=== PATIENT | male | born 1980 | race American Indian/Alaskan Native ===

== ENCOUNTER 2019-06-23 09:44 | Emergency (ER) | payer MEDICAID, OTHER ==
--- NOTE | 2019-06-23 10:49 | EDM.PDOC ---
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 Hospitalized x 2 weeks, chest tubes bilateral. Now on IV vancomycin twice daily. No nausea or vomiting. No fever. No difficulty with urination. Right Flank Pain Score (Numeric/FACES): 10 - Related Data Allergies Allergy/AdvReac Type Severity Reaction Status Date / Time No Known Allergies Allergy Verified 06/23/19 09:58 Home Meds: Home Meds Vancomycin HCl in Dextrose 5 % [Vancomycin 1.25 Gram/250Ml-D5w] 1.25 gm IV BID 06/23/19 [History] Past Medical History Cardiovascular History: Reports: Bacterial Endocarditis, Blood Clots/VTE/DVT Gastrointestinal History: Reports: Chronic Constipation Other Gastrointestinal History: takes a stool softner, does not know what it is Genitourinary History: Reports: None - Past Surgical History Respiratory Surgical History: Reports: Other (See Below) Other Respiratory Surgeries/Procedures: Bilat. chest tubes due to PE Social & Family History - Tobacco Use Smoking Status *Q: Former Smoker Used Tobacco, but Quit: Yes Month/Year Tobacco Last Used: 1 Tobacco Use Comment: States he stopped smoking 3 weeks ago - Caffeine Use Caffeine Use: Reports: Soda - Recreational Drug Use Recreational Drug Use: No ED ROS GENERAL - Review of Systems Review Of Systems: Comprehensive ROS is negative, except as noted in HPI. ED EXAM,LOWER BACK PAIN/INJURY - Physical Exam Exam: See Below Exam Limited By: No Limitations General Appearance: Alert, Mild Distress, Thin Eye Exam: Bilateral Eye: EOMI Ears: Normal External Exam, Normal Canal, Hearing Grossly Normal, Normal TMs Nose: Normal Inspection Throat/Mouth: Normal Inspection Head: Atraumatic, Normocephalic Neck: Normal Inspection Respiratory/Chest: No Respiratory Distress, Lungs Clear, Normal Breath Sounds Cardiovascular: Normal Peripheral Pulses, Regular Rate, Rhythm GI/Abdominal: Abnormal Bowel Sounds (hyperactie) Back Exam: Normal Inspection, Full Range of Motion Extremities: Normal Inspection Neurological: Alert, Normal Mood/Affect Psychiatric: Normal Affect Skin Exam: Warm, Dry, Intact, Normal Color Course - Vital Signs Last Recorded V/S: Last Vital Signs Temp 98.6 F 06/23/19 09:55 Pulse 93 06/23/19 09:55 Resp 20 06/23/19 09:55 BP 138/97 H 06/23/19 09:55 Pulse Ox 100 06/23/19 09:55 - Orders/Labs/Meds Labs: Laboratory Tests 06/23/19 06/23/19 06/23/19 Range/Units 10:16 10:47 10:47 WBC 9.8 (5.0-10.0) 10^3/uL RBC 4.37 L (4.6-6.2) 10^6/uL Hgb 13.2 L (14.0-18.0) g/dL Hct 39.2 L (40.0-54.0) % MCV 89.7 (80-100) fL MCH 30.2 (27.0-34.0) pg MCHC 33.7 (33.0-35.0) g/dL Plt Count 449 (150-450) 10^3/uL Neut % (Auto) 64.9 (42.2-75.2) % Lymph % (Auto) 13.7 L (20.5-50.1) % [place] % (Auto) 6.9 (2-8) % Eos % (Auto) 13.4 H (1.0-3.0) % Baso % (Auto) 1.1 H (0.0-1.0) % D-Dimer, Quantitative (0-400) ng/mL Sodium 137 (135-145) mmol/L Potassium 4.3 (3.6-5.0) mmol/L Chloride 103 (101-111) mmol/L Carbon Dioxide 26.0 (21.0-31.0) mmol/L Anion Gap 12.3 BUN 12 (7-18) mg/dL Creatinine 1.0 (0.6-1.3) mg/dL Est Cr Clr Drug Dosing 90.38 mL/min Estimated GFR (MDRD) > 60 BUN/Creatinine Ratio 12.00 Glucose 89 (74-105) mg/dL Lactic Acid (0.5-2.0) mmol/L Calcium 8.8 (8.4-10.2) mg/dl Total Bilirubin 0.7 (0.2-1.0) mg/dL AST 13 (10-42) IU/L ALT 10 (10-60) IU/L Alkaline Phosphatase 61 (42-121) IU/L Total Protein 7.6 (6.7-8.2) g/dl Albumin 3.3 (3.2-5.5) g/dl Globulin 4.3 Albumin/Globulin Ratio 0.77 Amylase 47 (28-100) U/L Lipase 23 (22-51) U/L Urine Color Yellow (YELLOW) Urine Appearance Clear (CLEAR) Urine pH 7.0 (5.0-9.0) Ur Specific [place] 1.025 (1.005-1.030) Urine Protein Negative (NEGATIVE) Urine Glucose (UA) Negative (NEGATIVE) Urine Ketones Negative (NEGATIVE) Urine Occult Blood Negative (NEGATIVE) Urine Nitrite Negative (NEGATIVE) Urine Bilirubin Negative (NEGATIVE) Urine Urobilinogen 0.2 (0.2-1.0) mg/dL Ur Leukocyte Esterase Negative (NEGATIVE) Urine Opiates Screen (NEGATIVE) Ur Oxycodone Screen (NEGATIVE) Urine Methadone Screen (NEGATIVE) Ur Barbiturates Screen (NEGATIVE) U Tricyclic Antidepress (NEGATIVE) Ur Phencyclidine Scrn (NEGATIVE) Ur Amphetamine Screen (NEGATIVE) U Methamphetamines Scrn (NEGATIVE) Urine MDMA Screen (NEGATIVE) U Benzodiazepines Scrn (NEGATIVE) Urine Cocaine Screen (NEGATIVE) U Marijuana (THC) Screen (NEGATIVE) 06/23/19 06/23/19 06/23/19 Range/Units 10:47 10:47 11:25 WBC (5.0-10.0) 10^3/uL RBC (4.6-6.2) 10^6/uL Hgb (14.0-18.0) g/dL Hct (40.0-54.0) % MCV (80-100) fL MCH (27.0-34.0) pg MCHC (33.0-35.0) g/dL Plt Count (150-450) 10^3/uL Neut % (Auto) (42.2-75.2) % Lymph % (Auto) (20.5-50.1) % [place] % (Auto) (2-8) % Eos % (Auto) (1.0-3.0) % Baso % (Auto) (0.0-1.0) % D-Dimer, Quantitative 482 H (0-400) ng/mL Sodium (135-145) mmol/L Potassium (3.6-5.0) mmol/L Chloride (101-111) mmol/L Carbon Dioxide (21.0-31.0) mmol/L Anion Gap BUN (7-18) mg/dL Creatinine (0.6-1.3) mg/dL Est Cr Clr Drug Dosing mL/min Estimated GFR (MDRD) BUN/Creatinine Ratio Glucose (74-105) mg/dL Lactic Acid 0.9 (0.5-2.0) mmol/L Calcium (8.4-10.2) mg/dl Total Bilirubin (0.2-1.0) mg/dL AST (10-42) IU/L ALT (10-60) IU/L Alkaline Phosphatase (42-121) IU/L Total Protein (6.7-8.2) g/dl Albumin (3.2-5.5) g/dl Globulin Albumin/Globulin Ratio Amylase (28-100) U/L Lipase (22-51) U/L Urine Color (YELLOW) Urine Appearance (CLEAR) Urine pH (5.0-9.0) Ur Specific [place] (1.005-1.030) Urine Protein (NEGATIVE) Urine Glucose (UA) (NEGATIVE) Urine Ketones (NEGATIVE) Urine Occult Blood (NEGATIVE) Urine Nitrite (NEGATIVE) Urine Bilirubin (NEGATIVE) Urine Urobilinogen (0.2-1.0) mg/dL Ur Leukocyte Esterase (NEGATIVE) Urine Opiates Screen Negative (NEGATIVE) Ur Oxycodone Screen Negative (NEGATIVE) Urine Methadone Screen Negative (NEGATIVE) Ur Barbiturates Screen Negative (NEGATIVE) U Tricyclic Antidepress Negative (NEGATIVE) Ur Phencyclidine Scrn Negative (NEGATIVE) Ur Amphetamine Screen Negative (NEGATIVE) U Methamphetamines Scrn Negative (NEGATIVE) Urine MDMA Screen Negative (NEGATIVE) U Benzodiazepines Scrn Negative (NEGATIVE) Urine Cocaine Screen Negative (NEGATIVE) U Marijuana (THC) Screen Negative (NEGATIVE) Meds: Medications Discontinued Medications Generic Name Dose Route Start Last Admin Trade Name Freq PRN Reason Stop Dose Admin Iopamidol 100 ml 06/23/19 12:03 06/23/19 15:35 Isovue-300 (61%) IVPUSH 06/23/19 12:04 100 ml ONETIME ONE Administration Ketorolac Tromethamine 30 mg 06/23/19 12:33 06/23/19 12:46 Toradol IVPUSH 06/23/19 12:34 30 mg ONETIME ONE Administration - Radiology Interpretation Free Text/Narrative:: abdomen, moderate stool. See report Departure - Departure Time of Disposition: 12:45 Disposition: Home, Self-Care 01 Condition: Good Clinical Impression: Flank pain Constipation Qualifiers: Constipation type: slow transit constipation Qualified Code(s): K59.01 - Slow transit constipation - Discharge Information *PRESCRIPTION DRUG MONITORING PROGRAM REVIEWED*: No *COPY OF PRESCRIPTION DRUG MONITORING REPORT IN PATIENT ARON: No Instructions: Constipation, Adult, [id number] Referrals: PCP,Unobtain [Primary Care Provider] - Forms: ED Department Discharge Additional Instructions: magnesium citrate one bottle today take stool softeners as directed follow up with primary care regarding chest scan Sepsis Event Note - Evaluation Sepsis Screening Result: No Definite Risk - Focused Exam Date Exam was Performed: 06/25/19 Time Exam was Performed: 06:04
[2019-06-23 11:17] LABS: ANION GAP 12.3; CHLORIDE,CL 103 mmol/L (101-111); SODIUM,NA 137 mmol/L (135-145)
[2019-06-23] MEDS ORDERED: Iopamidol 612 MG/ML 100 ML Bottle IVPUSH ONE (12:03)
[2019-06-23] MEDS ORDERED: Ketorolac 30 MG/ML SDV IVPUSH ONE (12:33)
== END 2019-06-23 13:00 | disposition home or self-care (01) ==
LOC: DL.ED 09:44
DX: K59.01 Slow transit constipation (principal); Z87.891 Personal history of nicotine dependence
CPT/HCPCS: 36415; 71260; 74177; 80053; 80305; 81003; 82150; 83605; 83690; 85025; 85379; 87040; 96374; 99284; J1885; Q9967

== ENCOUNTER 2020-09-14 06:48 | Emergency (ER) | payer MEDICAID ==
[2020-09-14 07:25] LABS: ANION GAP 13.9 mEq/L (7-13); CHLORIDE,CL 100 mmol/L (98-107); SODIUM,NA 139 mmol/L (136-145)
[2020-09-14] MEDS ORDERED: Ibuprofen 400 MG Tab PO ONE (07:29)
--- NOTE | 2020-09-14 07:36 | EDM.PDOC ---
ED HPI GENERAL MEDICAL PROBLEM - General Chief Complaint: Genitourinary Problem Time Seen by Provider: 09/14/20 07:30 Source of Information: Reports: Patient, RN, RN Notes Reviewed History Limitations: Reports: No Limitations - History of Present Illness INITIAL COMMENTS - FREE TEXT/NARRATIVE: Patient presents to the ED via [facility] for complaints of left testicular pain and swelling. The patient reports the swelling and pain began yesterday, 09/13/20, and has progressively worsened in that time. He states he felt testicular heaviness to the left side and thought he heard a "pop" prior to the pain beginning. He has noted dysuria, difficulty starting and maintaining and urine flow, as well as purulent drainage from his urethra. Additionally, he states he has noticed a general malaise, shaking chills, and suprapubic tenderness that has worsened since the pain began. He denies fever, palpitations, nausea, vomiting, abdominal pain, hematuria, diarrhea, melena, or hematochezia. The patient states he has not been tested for STIs in over a year; he notes his current partner has not been tested for STIs. 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 chest tubes due to PE Social & Family History - Caffeine Use Caffeine Use: Reports: Soda ED ROS GENERAL - Review of Systems Review Of Systems: Comprehensive ROS is negative, except as noted in HPI. ED EXAM, RENAL/ - Physical Exam Exam: See Below Exam Limited By: No Limitations General Appearance: Alert, No Apparent Distress Eye Exam: Bilateral Eye: EOMI, Normal Inspection, PERRL (3mm) Throat/Mouth: Normal Inspection, Normal Voice, No Airway Compromise Respiratory/Chest: No Respiratory Distress, Lungs Clear, Normal Breath Sounds, No Accessory Muscle Use, Chest Non-Tender Cardiovascular: Normal Peripheral Pulses, Regular Rate, Rhythm, No Edema, No Gallop, No JVD, No Murmur, No Rub, Tachycardia GI/Abdominal: Normal Bowel Sounds, Soft, No Distention, No Mass, Pelvis Stable, Guarding, Tender (L suprapubic tenderness). No: Rigid, Rebound, Hernia, Mass (Male) Exam: No Hernia, Circumcised, Cremasteric Reflex, Scrotal Swelling (Erythema to left), Scrotum Tenderness (L), Testicular Tenderness (L). No: Penile Lesions, Rash, Testicular Mass, Urethral Discharge (Not noted on exam, patient verbalized purulent drainage) Rectal (Males) Exam: Normal Exam, Normal Rectal Tone Back Exam: Normal Inspection, Full Range of Motion. No: CVA Tenderness (L), CVA Tenderness (R) Neurological: Alert, Oriented, CN II-XII Intact, Normal Cognition, Normal Gait, No Motor/Sensory Deficits Psychiatric: Normal Affect, Anxious Skin Exam: Warm, Dry, Intact, No Rash, Erythema (To left scrotum), Increased Warmth (To left scrotum). No: Ecchymosis, Mottled, Pallor, Petechiae Lymphatic: No Adenopathy Course - Vital Signs Last Recorded V/S: Last Vital Signs Temp 98.2 F 09/14/20 06:52 Pulse 112 H 09/14/20 06:52 Resp 18 09/14/20 06:52 BP 159/101 H 09/14/20 06:52 Pulse Ox 100 09/14/20 06:52 - Orders/Labs/Meds Orders: Active Orders 24 hr Category Date Time Status CHLAMYDIA AND GONORRHEA BY TMA Stat Lab 09/14/20 08:37 Received CULTURE URINE [RM] Stat Lab 09/14/20 08:37 Received Labs: Laboratory Tests 09/14/20 09/14/20 09/14/20 Range/Units 07:01 07:01 07:01 WBC 15.7 H (5.0-10.0) 10^3/uL RBC 5.08 (4.6-6.2) 10^6/uL Hgb 15.9 D (14.0-18.0) g/dL Hct 47.3 (40.0-54.0) % MCV 93.1 D (80-100) fL MCH 31.3 (27.0-34.0) pg MCHC 33.6 (33.0-35.0) g/dL Plt Count 305 D (150-450) 10^3/uL Neut % (Auto) 79.7 H (42.2-75.2) % Lymph % (Auto) 10.2 L (20.5-50.1) % [place] % (Auto) 7.8 (2-8) % Eos % (Auto) 2.0 (1.0-3.0) % Baso % (Auto) 0.3 (0.0-1.0) % Sodium 139 (136-145) mmol/L Potassium 3.9 (3.5-5.1) mmol/L Chloride 100 (98-107) mmol/L Carbon Dioxide 29 (21-32) mmol/L Anion Gap 13.9 H (7-13) mEq/L BUN 13 (7-18) mg/dL Creatinine 1.00 (0.70-1.30) mg/dL Est Cr Clr Drug Dosing 92.72 mL/min Estimated GFR (MDRD) > 60 BUN/Creatinine Ratio 13.0 (No establ ref range) Glucose 98 (70-99) mg/dL Lactic Acid 0.5 (0.4-2.0) mmol/L Calcium 8.5 (8.5-10.1) mg/dL Total Bilirubin 0.9 (0.2-1.0) mg/dL AST 19 (15-37) U/L ALT 22 (16-63) U/L Alkaline Phosphatase 95 (46-116) U/L Total Protein 7.8 (6.4-8.2) g/dL Albumin 3.4 (3.4-5.0) g/dL Globulin 4.4 Albumin/Globulin Ratio 0.8 Urine Color (YELLOW) Urine Appearance (CLEAR) Urine pH (5.0-9.0) Ur Specific [place] (1.005-1.030) Urine Protein (NEGATIVE) Urine Glucose (UA) (NEGATIVE) Urine Ketones (NEGATIVE) Urine Occult Blood (NEGATIVE) Urine Nitrite (NEGATIVE) Urine Bilirubin (NEGATIVE) Urine Urobilinogen (0.2-1.0) mg/dL Ur Leukocyte Esterase (NEGATIVE) Urine RBC /HPF Urine WBC (0-5/HPF) /HPF Ur Epithelial Cells (NOT SEEN) /HPF Urine Bacteria (0-FEW/HPF) /HPF Urine Mucus (NOT SEEN) /LPF 09/14/20 Range/Units 08:37 WBC (5.0-10.0) 10^3/uL RBC (4.6-6.2) 10^6/uL Hgb (14.0-18.0) g/dL Hct (40.0-54.0) % MCV (80-100) fL MCH (27.0-34.0) pg MCHC (33.0-35.0) g/dL Plt Count (150-450) 10^3/uL Neut % (Auto) (42.2-75.2) % Lymph % (Auto) (20.5-50.1) % [place] % (Auto) (2-8) % Eos % (Auto) (1.0-3.0) % Baso % (Auto) (0.0-1.0) % Sodium (136-145) mmol/L Potassium (3.5-5.1) mmol/L Chloride (98-107) mmol/L Carbon Dioxide (21-32) mmol/L Anion Gap (7-13) mEq/L BUN (7-18) mg/dL Creatinine (0.70-1.30) mg/dL Est Cr Clr Drug Dosing mL/min Estimated GFR (MDRD) BUN/Creatinine Ratio (No establ ref range) Glucose (70-99) mg/dL Lactic Acid (0.4-2.0) mmol/L Calcium (8.5-10.1) mg/dL Total Bilirubin (0.2-1.0) mg/dL AST (15-37) U/L ALT (16-63) U/L Alkaline Phosphatase (46-116) U/L Total Protein (6.4-8.2) g/dL Albumin (3.4-5.0) g/dL Globulin Albumin/Globulin Ratio Urine Color Dark yellow (YELLOW) Urine Appearance Cloudy (CLEAR) Urine pH 7.0 (5.0-9.0) Ur Specific [place] >= 1.030 (1.005-1.030) Urine Protein 100 H (NEGATIVE) Urine Glucose (UA) Negative (NEGATIVE) Urine Ketones 15 H (NEGATIVE) Urine Occult Blood Moderate H (NEGATIVE) Urine Nitrite Negative (NEGATIVE) Urine Bilirubin Small H (NEGATIVE) Urine Urobilinogen >=8.0 H (0.2-1.0) mg/dL Ur Leukocyte Esterase Large H (NEGATIVE) Urine RBC 5-10 H /HPF Urine WBC >100 H (0-5/HPF) /HPF Ur Epithelial Cells Rare (NOT SEEN) /HPF Urine Bacteria Few (0-FEW/HPF) /HPF Urine Mucus Not seen (NOT SEEN) /LPF Meds: Medications Discontinued Medications Generic Name Dose Route Start Last Admin Trade Name Conrado PRN Reason Stop Dose Admin Ceftriaxone Sodium 500 mg/ 0 mg 09/14/20 07:39 09/14/20 07:43 Lidocaine HCl 1 ml IM 09/14/20 07:40 500 inj ONETIME ONE Administration Doxycycline Monohydrate 100 mg 09/14/20 07:40 09/14/20 07:43 Doxycycline Monohydrate 100 Mg Cap PO 09/14/20 07:41 100 mg ONETIME ONE Administration Ibuprofen 400 mg 09/14/20 07:29 09/14/20 07:38 Ibuprofen 400 Mg Tab PO 09/14/20 07:30 400 mg ONETIME ONE Administration Metronidazole 2,000 mg 09/14/20 07:41 09/14/20 07:45 Metronidazole 250 Mg Tab PO 09/14/20 07:42 2,000 mg ONETIME ONE Administration - Radiology Interpretation Free Text/Narrative:: [facility] Final Radiology Report Call: [phone] assistance Online chat: [email or web address] Name: VERONICA ESPINOZA Age: 39Years M Date: 09/14/2020 SSN: -- : [id number] Study: US SCROTUM AND CONTENTS Requesting Physician: TOYIN ALATORRE Images: 115 Addl Studies: Provided Clinical History: pain swelling Contrast: Without Contrast Medium: Contrast Amount: Contrast Method: CONFIDENTIALITY STATEMENT This report is intended only for use by the referring physician, and only in accordance with law. If you received this in error, call [phone]. Page 1 of 1 PROCEDURE INFORMATION: Exam: US Scrotum Exam date and time: 09/14/2020 8:09 AM Age: 39 years old Clinical indication: Scrotum pain; Additional info: Pain swelling TECHNIQUE: Imaging protocol: Real-time ultrasound of the scrotum and contents with color Doppler and image documentation. COMPARISON: No relevant prior studies available. FINDINGS: Right testicle: The right testicle measures 2.4 x 3.3 x 2.5 cm. Normal perfusion and echotexture. No masses or other abnormalities. Left testicle: The left testicle measures 2.3 x 3.6 x 2.7 cm. Normal perfusion and echotexture. No masses or other abnormalities. Epididymides: Normal right epididymis. The left is enlarged and inhomogeneous and mildly relatively hypervascular compared to the right. Scrotum: Small left hydrocele. Inguinal canal: No hernia. IMPRESSION: Mild left epididymitis. Thank you for allowing us to participate in the care of your patient. Dictated and Authenticated by: Sebastian Thomas MD 09/14/2020 9:12 AM Central Time ([place] & [place]) - Re-Assessments/Exams Free Text/Narrative Re-Assessment/Exam: 09/14/20 WBC 15.7 with left shift present. CMP unremarkable. US to rule out abscess given significant swelling and elevated WBC. Will treat for epididymitis, including prophylaxis for STIs. Rocephin 500mg IM, Metronidazole 2gm, and Doxycycline 100mg BID (first dose given here). US negative for abscess; left epididymitis. Supportive cares, as well as red flag signs and symptoms which would warrant reevaluation, reviewed. Patient instructed to follow up with PCP in two weeks, given extent of infection. Patient verbalized understanding and agreement with the plan of care. Departure - Departure Time of Disposition: 07:56 Disposition: Home, Self-Care 01 Condition: Good Clinical Impression: Epididymitis, Ureteritis, Need for prophylaxis against sexually transmitted diseases - Discharge Information *PRESCRIPTION DRUG MONITORING PROGRAM REVIEWED*: Not Applicable *COPY OF PRESCRIPTION DRUG MONITORING REPORT IN PATIENT ARON: Not Applicable Instructions: Epididymitis Forms: ED Department Discharge Additional Instructions: Rx: Doxycycline 1.) Take all of your antibiotic until gone. 2.) Your test results take a few days, you will receive a letter in the mail if you do not hear from the [facility] infectious disease nurse first. 3.) You may take ibuprofen (Motrin/Advil) 400mg every six hours for pain and swelling. You may also take acetaminophen (Tylenol) 650mg every six hours, as pain persists. You may stagger these medications so you are taking a dose every three hours. 4.) Sling your testicles, as shown in the emergency department. 5.) You may also apply ice to the testicles, as pain and swelling persist. 6.) Follow up with your primary care provider in two weeks, or sooner should symptoms worsen. Sepsis Event Note (ED) - Evaluation Sepsis Screening Result: No Definite Risk - Focused Exam Vital Signs: Vital Signs Temp Pulse Resp BP Pulse Ox 09/14/20 06:52 98.2 F 112 H 18 159/101 H 100
[2020-09-14] MEDS ORDERED: cefTRIAXone 500 MG, Lidocaine 1% 1 ML IM ONE ×2 (07:39)
[2020-09-14] MEDS ORDERED: Doxycycline Monohydrate 100 MG Cap PO ONE (07:40)
[2020-09-14] MEDS ORDERED: metroNIDAZOLE 250 MG Tab PO ONE (07:41)
--- NOTE | 2020-09-14 09:12 | US ---
PROCEDURE INFORMATION: Exam: US Scrotum Exam date and time: 09/14/2020 8:09 AM Age: 39 years old Clinical indication: Scrotum pain; Additional info: Pain swelling TECHNIQUE: Imaging protocol: Real-time ultrasound of the scrotum and contents with color Doppler and image documentation. COMPARISON: No relevant prior studies available. FINDINGS: Right testicle: The right testicle measures 2.4 x 3.3 x 2.5 cm. Normal perfusion and echotexture. No masses or other abnormalities. Left testicle: The left testicle measures 2.3 x 3.6 x 2.7 cm. Normal perfusion and echotexture. No masses or other abnormalities. Epididymides: Normal right epididymis. The left is enlarged and inhomogeneous and mildly relatively hypervascular compared to the right. Scrotum: Small left hydrocele. Inguinal canal: No hernia. IMPRESSION: Mild left epididymitis.
[2020-09-15 17:46] LABS: C.TRACHOMATIS BY TMA Negative (Negative); N.GONORRHOEAE BY TMA Positive (Negative)
== END 2020-09-14 09:00 | disposition home or self-care (01) ==
LOC: DL.ED 06:48
DX: N34.2 Other urethritis (principal); N45.1 Epididymitis; Z11.3 Encounter for screening for infections with a predominantly sexual mode of transmission
CPT/HCPCS: 36415; 76870; 80053; 81001; 83605; 85025; 87086; 87491; 87591; 93975; 96372; 99284; 99285-25; A9270-GY; J0696

== ENCOUNTER 2022-03-07 11:47 | Emergency (ER) | payer MEDICAID ==
[~2022-03-07 11:47] MED LIST: Ketorolac 30 MG/ML SDV IVPUSH ONE; Labetalol 20 MG/4 ML Syringe IVPUSH ONE
[2022-04-01 12:36] LABS: ANION GAP 11.6 mEq/L (7-13); CHLORIDE,CL 102 mmol/L (98-107); SODIUM,NA 138 mmol/L (136-145)
[2022-04-01 12:37] LABS: ESTIMATED GFR 103 mL/min (>=60)
[2022-04-01 12:39] LABS: CORONAVIRUS COVID-19 NAA NEGATIVE (NEGATIVE); PTT,PARTIAL THROMBOPLSTIN TIME 25.7 SEC (22.0-34.0); RESPIRATORY SYNCYTIAL VIR NAA NEGATIVE (NEGATIVE)
== END 2022-03-08 03:33 | disposition home or self-care (01) ==
LOC: DL.ED 11:47
DX: R07.89 Other chest pain (principal); F15.10 Other stimulant abuse, uncomplicated; Z20.822 Contact with and (suspected) exposure to COVID-19
CPT/HCPCS: 0241U; 36415; 71045; 80053; 82150; 83605; 83690; 84484; 85027; 85379; 85610; 85730; 86140; 96374; 96375; 99285; 93005; J1885; J3490

== ENCOUNTER 2023-09-30 13:41 | Emergency (ER) | payer SELFPAY | END 2023-09-30 13:57 | disposition left against medical advice (07) | LOC: DL.ED 13:41 | DX: Z53.21 Procedure and treatment not carried out due to patient leaving prior to being seen by health care provider (principal) ==

== ENCOUNTER 2023-10-30 08:26 | Emergency (ER) | payer SELFPAY ==
[2023-10-30] MEDS: Acetaminophen/HYDROcodone 325-10 MG Tab PO ONE (08:43)
[2023-10-30] MEDS: Ketorolac 30 MG/ML SDV IM ONE (08:43)
[2023-10-30 09:09] LABS: BASOPHILS PERCENT AUTO 0.3 % (0.0-1.0); HEMATOCRIT 46.4 % (40.0-54.0); HEMOGLOBIN 16.1 g/dL (14.0-18.0); LYMPHOCYTES PERCENT AUTO 22.2 % (20.5-50.1); MEAN CORPUSCULAR HEMOGLOBIN 33.5 pg (27.0-34.0); MEAN CORPUSCULAR HGB CONC 34.7 g/dL (33.0-35.0); MEAN CORPUSCULAR VOLUME 96.5 fL (80-100); MONOCYTES PERCENT AUTO 10.1 % (2-8); NEUTROPHILS PERCENT AUTO 64.4 % (42.2-75.2); PLATELET COUNT,PLT 218 10^3/uL (150-450); RED BLOOD CELL COUNT 4.81 10^6/uL (4.6-6.2); WHITE BLOOD CELL COUNT,WBC 5.8 10^3/uL (5.0-10.0)
[2023-10-30 09:24] LABS: ALBUMIN 3.8 g/dL (3.4-5.0); ANION GAP 16.7 mEq/L (7-13); BILIRUBIN TOTAL 0.8 mg/dL (0.2-1.0); BUN/CREATININE RATIO 10.2 (No establ ref range); CALCIUM 8.2 mg/dL (8.5-10.1); CREATININE 0.88 mg/dL (0.70-1.30); EST CRCL DRUG DOSING (CG) 98.68 mL/min; POTASSIUM,K 3.7 mmol/L (3.5-5.1); PROTEIN TOTAL,TP 7.7 g/dL (6.4-8.2)
[2023-10-30 10:16] LABS: APPEARANCE,URINE CLEAR (CLEAR); BILIRUBIN,URINE SMALL (NEGATIVE); COLOR,URINE YELLOW (YELLOW); GLUCOSE,URINE NEGATIVE (NEGATIVE); KETONES,URINE TRACE (NEGATIVE); LEUKOCYTE ESTERASE,URINE NEGATIVE (NEGATIVE); NITRITE,URINE NEGATIVE (NEGATIVE); OCCULT BLOOD,URINE NEGATIVE (NEGATIVE); PROTEIN,URINE 100 (NEGATIVE)
[2023-10-30 10:35] LABS: BACTERIA,URINE FEW /HPF (0-FEW/HPF); EPITHELIAL CELLS,URINE RARE /HPF (NOT SEEN); MUCUS,URINE MODERATE /LPF (NOT SEEN); RBC,URINE NOT SEEN /HPF (0-5); WBC,URINE 0-5 /HPF (0-5/HPF)
[2023-10-30] MEDS: Dexamethasone 4 MG/ML SDV IVPUSH ONE (11:07)
== END 2023-10-30 10:54 | disposition home or self-care (01) ==
LOC: DL.ED 08:26
DX: S39.012A Strain of muscle, fascia and tendon of lower back, initial encounter (principal); R94.5 Abnormal results of liver function studies; I10 Essential (primary) hypertension; E11.9 Type 2 diabetes mellitus without complications; Z79.899 Other long term (current) drug therapy; X58.XXXA Exposure to other specified factors, initial encounter; Y92.89 Other specified places as the place of occurrence of the external cause; Y99.0 Civilian activity done for income or pay
CPT/HCPCS: 36415; 74176; 80053; 81001; 85025; 96372; 99284; A9270; J1885

== ENCOUNTER 2023-12-30 02:20 | Emergency (ER) | payer SELFPAY ==
[2023-12-30 03:07] LABS: BASOPHILS PERCENT AUTO 0.3 % (0.0-1.0); EOSINOPHILS PERCENT AUTO 5.6 % (1.0-3.0); HEMOGLOBIN 15.6 g/dL (14.0-18.0); LYMPHOCYTES PERCENT AUTO 34.5 % (20.5-50.1); MEAN CORPUSCULAR HEMOGLOBIN 33.4 pg (27.0-34.0); MEAN CORPUSCULAR HGB CONC 34.7 g/dL (33.0-35.0); MEAN CORPUSCULAR VOLUME 96.4 fL (80-100); MONOCYTES PERCENT AUTO 10.2 % (2-8); NEUTROPHILS PERCENT AUTO 49.4 % (42.2-75.2); PLATELET COUNT,PLT 268 10^3/uL (150-450); RED BLOOD CELL COUNT 4.67 10^6/uL (4.6-6.2); WHITE BLOOD CELL COUNT,WBC 7.3 10^3/uL (5.0-10.0)
[2023-12-30] MEDS: Sodium Chloride 0.9% 10 ML Syringe FLUSH PRN (03:11)
[2023-12-30] MEDS: Aspirin 81 MG Tab.Chew PO ONE (03:15)
[2023-12-30 03:21] LABS: A/G RATIO 1.1; ALBUMIN 3.6 g/dL (3.4-5.0); ANION GAP 12.6 mEq/L (7-13); BILIRUBIN TOTAL 0.3 mg/dL (0.2-1.0); BUN/CREATININE RATIO 9.6 (No establ ref range); CALCIUM 9.2 mg/dL (8.5-10.1); CREATININE 0.83 mg/dL (0.70-1.30); EST CRCL DRUG DOSING (CG) 107.29 mL/min; POTASSIUM,K 3.6 mmol/L (3.5-5.1)
[2023-12-30 03:40] LABS: AMPHETAMINES,URINE NEGATIVE (NEGATIVE); BARBITURATES,URINE NEGATIVE (NEGATIVE); BENZODIAZEPINE,URINE NEGATIVE (NEGATIVE); MDMA (ECSTASY), URINE NEGATIVE (NEGATIVE); METHADONE,URINE NEGATIVE (NEGATIVE); METHAMPHETAMINES,URINE NEGATIVE (NEGATIVE); OPIATES,URINE NEGATIVE (NEGATIVE); OXYCODONE,URINE NEGATIVE (NEGATIVE); PHENCYCLIDINE,URINE NEGATIVE (NEGATIVE); TCA,URINE NEGATIVE (NEGATIVE)
[2023-12-30 03:41] LABS: APPEARANCE,URINE CLEAR (CLEAR); BILIRUBIN,URINE NEGATIVE (NEGATIVE); COLOR,URINE YELLOW (YELLOW); GLUCOSE,URINE NEGATIVE (NEGATIVE); KETONES,URINE NEGATIVE (NEGATIVE); LEUKOCYTE ESTERASE,URINE NEGATIVE (NEGATIVE); NITRITE,URINE NEGATIVE (NEGATIVE); OCCULT BLOOD,URINE NEGATIVE (NEGATIVE); PROTEIN,URINE NEGATIVE (NEGATIVE); UROBILINOGEN,URINE 0.2 mg/dL (0.2-1.0)
[2023-12-30 03:41] LABS: INR 0.9 (0.9-1.2); PROTHROMBIN TIME 9.3 SEC (9.0-12.0); PTT,PARTIAL THROMBOPLSTIN TIME 24.9 SEC (22.0-34.0)
[2023-12-30] MEDS: Ketorolac 30 MG/ML SDV IM ONE (05:08)
== END 2023-12-30 05:36 | disposition home or self-care (01) ==
LOC: DL.ED 02:20
DX: R07.82 Intercostal pain (principal); R07.89 Other chest pain; R79.89 Other specified abnormal findings of blood chemistry; I10 Essential (primary) hypertension; E11.9 Type 2 diabetes mellitus without complications; F17.210 Nicotine dependence, cigarettes, uncomplicated; Z79.899 Other long term (current) drug therapy
CPT/HCPCS: 36415; 71045; 80053; 80305-QW; 80307; 81003; 83880; 84484; 85025; 85379; 85610; 85730; 93005; 96372; 99285; A9270-GY; J1885; J3490

== ENCOUNTER 2024-10-24 06:13 | Emergency (ER) | payer MEDICAID ==
[2024-10-24] MEDS: fentaNYL 100 MCG/2 ML SDV IM ONE (06:37)
[2024-10-24] MEDS: Iopamidol 755 Mg/ML 100 ML Bottle IVPUSH ONE (07:11)
[2024-10-24] MEDS ORDERED: Sodium Chloride 0.9% 10 ML Syringe FLUSH PRN (07:12)
[2024-10-24] MEDS: Sodium Chloride 0.9% 1,000 ML IV ONE (07:26)
[2024-10-24 07:47] LABS: EOSINOPHILS PERCENT AUTO 0.8 % (1.0-3.0); HEMATOCRIT 42.7 % (40.0-54.0); LYMPHOCYTES PERCENT AUTO 18.8 % (20.5-50.1); MEAN CORPUSCULAR HEMOGLOBIN 34.2 pg (27.0-34.0); MEAN CORPUSCULAR HGB CONC 35.1 g/dL (33.0-35.0); MEAN CORPUSCULAR VOLUME 97.5 fL (80-100); MONOCYTES PERCENT AUTO 10.7 % (2-8); NEUTROPHILS PERCENT AUTO 69.7 % (42.2-75.2); PLATELET COUNT,PLT 231 10^3/uL (150-450); RED BLOOD CELL COUNT 4.38 10^6/uL (4.6-6.2); WHITE BLOOD CELL COUNT,WBC 7.2 10^3/uL (5.0-10.0)
[2024-10-24 08:10] LABS: A/G RATIO 0.89; ALBUMIN 3.1 g/dL (3.4-5.0); ANION GAP 16.7 mEq/L (7-13); BILIRUBIN TOTAL 1.6 mg/dL (0.2-1.0); BUN/CREATININE RATIO 8.3 (No establ ref range); CALCIUM 8.2 mg/dL (8.5-10.1); CREATININE 0.84 mg/dL (0.70-1.30); EST CRCL DRUG DOSING (CG) 106.01 mL/min; POTASSIUM,K 3.7 mmol/L (3.5-5.1); PROTEIN TOTAL,TP 6.6 g/dL (6.4-8.2)
[2024-10-24] MEDS: Iopamidol 612 MG/ML 100 ML Bottle IVPUSH ONE (08:58)
== END 2024-10-24 09:22 | disposition home or self-care (01) ==
LOC: DL.ED 06:13
DX: S02.611A Fracture of condylar process of right mandible, initial encounter for closed fracture (principal); E11.9 Type 2 diabetes mellitus without complications; Y04.0XXA Assault by unarmed brawl or fight, initial encounter
CPT/HCPCS: 36415; 70450; 70486; 71260; 72125; 80053; 84484; 85025; 96372; 99284; J3010; J7030; Q9967; 99283

== ENCOUNTER 2024-12-09 00:41 | Emergency (ER) | payer MEDICAID ==
[2024-12-09] MEDS: Ketorolac 30 MG/ML SDV IM ONE (01:02)
[2024-12-09] MEDS: Ondansetron 4 MG/2 ML SDV IM ONE (01:03)
[2024-12-09] MEDS: Take Home: Ondansetron 4 MG Tab.DIS, 5 Tab Pack PO ONE (01:03)
== END 2024-12-09 01:09 | disposition home or self-care (01) ==
LOC: DL.ED 00:41
DX: B34.9 Viral infection, unspecified (principal); L98.9 Disorder of the skin and subcutaneous tissue, unspecified; I10 Essential (primary) hypertension; E11.9 Type 2 diabetes mellitus without complications
CPT/HCPCS: 96372; 99283; 99284; J1885; J2405; Q0162

== ENCOUNTER 2025-02-14 22:25 | Emergency (ER) | payer MEDICAID ==
[2025-02-14] MEDS ORDERED: Sodium Chloride 0.9% 10 ML Syringe FLUSH PRN (22:44)
[2025-02-14] MEDS: Ondansetron 4 MG/2 ML SDV IVPUSH ONE (22:55)
[2025-02-14 22:58] LABS: BASOPHILS PERCENT AUTO 0.2 % (0.0-1.0); EOSINOPHILS PERCENT AUTO 0.7 % (1.0-3.0); LYMPHOCYTES PERCENT AUTO 15.5 % (20.5-50.1); MONOCYTES PERCENT AUTO 8.6 % (2-8); NEUTROPHILS PERCENT AUTO 75.0 % (42.2-75.2); PLATELET COUNT,PLT 325 10^3/uL (150-450); RED BLOOD CELL COUNT 4.38 10^6/uL (4.6-6.2); WHITE BLOOD CELL COUNT,WBC 13.5 10^3/uL (5.0-10.0)
[2025-02-14 23:08] LABS: ALANINE AMINOTRANSFERASE,ALT 104.0 U/L (16-63); ASPARTATE AMNIOTRANSFERASE,AST 226.0 U/L (15-37); BILIRUBIN TOTAL 2.1 mg/dL (0.2-1.0); BLOOD UREA NITROGEN,BUN 11.0 mg/dL (7-18); CARBON DIOXIDE,CO2 26.0 mmol/L (21-32); CHLORIDE,CL 99.0 mmol/L (98-107); CREATININE 0.85 mg/dL (0.70-1.30); EST CRCL DRUG DOSING (CG) 101.88 mL/min; ETHANOL BLOOD MEDICAL 174.0 mg/dL (0); GLUCOSE RANDOM 108.0 mg/dL (70-99); POTASSIUM,K 3.5 mmol/L (3.5-5.1); PROTEIN TOTAL,TP 7.2 g/dL (6.4-8.2); SODIUM,NA 136.0 mmol/L (136-145)
[2025-02-14 23:10] LABS: A/G RATIO 0.76; ESTIMATED GFR 110.0 mL/min (>=60)
[2025-02-14] MEDS: Iopamidol 612 MG/ML 100 ML Bottle IVPUSH ONE (23:26)
[2025-02-14] MEDS: Lactated Ringers 1,000 ML IV ONE (23:53)
[2025-02-15 00:11] LABS: APPEARANCE,URINE CLEAR (CLEAR); GLUCOSE,URINE NEGATIVE (NEGATIVE); OCCULT BLOOD,URINE NEGATIVE (NEGATIVE)
[2025-02-15 00:13] LABS: AMPHETAMINES,URINE NEGATIVE (NEGATIVE); BARBITURATES,URINE NEGATIVE (NEGATIVE); MDMA (ECSTASY), URINE NEGATIVE (NEGATIVE); METHAMPHETAMINES,URINE NEGATIVE (NEGATIVE); OPIATES,URINE NEGATIVE (NEGATIVE); OXYCODONE,URINE NEGATIVE (NEGATIVE); PHENCYCLIDINE,URINE NEGATIVE (NEGATIVE); TCA,URINE NEGATIVE (NEGATIVE)
[2025-02-15] MEDS: Ketorolac 30 MG/ML SDV IVPUSH ONE (00:55)
== END 2025-02-15 01:49 | disposition home or self-care (01) ==
LOC: DL.ED 22:25
DX: A08.4 Viral intestinal infection, unspecified (principal); K83.1 Obstruction of bile duct; E83.119 Hemochromatosis, unspecified; R74.01 Elevation of levels of liver transaminase levels; F10.120 Alcohol abuse with intoxication, uncomplicated; I10 Essential (primary) hypertension; E11.9 Type 2 diabetes mellitus without complications; F17.210 Nicotine dependence, cigarettes, uncomplicated; Y90.9 Presence of alcohol in blood, level not specified
CPT/HCPCS: 36415; 74177; 80053; 80305; 80307; 81003; 82728; 83690; 83735; 84145; 84443; 84484; 85025; 93005; 96361; 96374; 96375; 99285; J1885; J2405; J7120; Q9967

== ENCOUNTER 2025-04-13 21:02 | Emergency (ER) | payer MEDICAID ==
[2025-04-13] MEDS: Iopamidol 612 MG/ML 100 ML Bottle IVPUSH ONE (21:24)
[2025-04-13 21:33] LABS: BASOPHILS PERCENT AUTO 0.2 % (0.0-1.0); EOSINOPHILS PERCENT AUTO 0.2 % (1.0-3.0); LYMPHOCYTES PERCENT AUTO 17.1 % (20.5-50.1); MONOCYTES PERCENT AUTO 7.2 % (2-8); NEUTROPHILS PERCENT AUTO 75.3 % (42.2-75.2); PLATELET COUNT,PLT 123 10^3/uL (150-450); RED BLOOD CELL COUNT 4.12 10^6/uL (4.6-6.2); WHITE BLOOD CELL COUNT,WBC 12.8 10^3/uL (5.0-10.0)
[2025-04-13 21:42] LABS: APPEARANCE,URINE CLEAR (CLEAR); GLUCOSE,URINE NEGATIVE (NEGATIVE); OCCULT BLOOD,URINE NEGATIVE (NEGATIVE)
[2025-04-13] MEDS: Ondansetron 4 MG/2 ML SDV IVPUSH ONE (21:42)
[2025-04-13 21:45] LABS: AMPHETAMINES,URINE NEGATIVE (NEGATIVE); BARBITURATES,URINE NEGATIVE (NEGATIVE); MDMA (ECSTASY), URINE NEGATIVE (NEGATIVE); METHAMPHETAMINES,URINE NEGATIVE (NEGATIVE); OPIATES,URINE NEGATIVE (NEGATIVE); OXYCODONE,URINE NEGATIVE (NEGATIVE); PHENCYCLIDINE,URINE NEGATIVE (NEGATIVE); TCA,URINE NEGATIVE (NEGATIVE)
[2025-04-13 21:49] LABS: INR 1.1 (0.9-1.2)
[2025-04-13 21:55] LABS: A/G RATIO 0.67; ALANINE AMINOTRANSFERASE,ALT 83.0 U/L (16-63); ASPARTATE AMNIOTRANSFERASE,AST 303.0 U/L (15-37); BILIRUBIN TOTAL 3.5 mg/dL (0.2-1.0); BLOOD UREA NITROGEN,BUN 6.0 mg/dL (7-18); CARBON DIOXIDE,CO2 21.0 mmol/L (21-32); CHLORIDE,CL 98.0 mmol/L (98-107); CREATININE 0.83 mg/dL (0.70-1.30); EST CRCL DRUG DOSING (CG) 117.27 mL/min; ESTIMATED GFR 111.0 mL/min (>=60); ETHANOL BLOOD MEDICAL 272.0 mg/dL (0); GLUCOSE RANDOM 107.0 mg/dL (70-99); POTASSIUM,K 3.2 mmol/L (3.5-5.1); PROTEIN TOTAL,TP 7.0 g/dL (6.4-8.2); SODIUM,NA 136.0 mmol/L (136-145)
[2025-04-13 22:01] LABS: LACTIC ACID 6.3 mmol/L (0.4-2.0)
[2025-04-13] MEDS: Magnesium Sulfate 2 GM/50 mL 2 GM in Premix Bag 1 BAG IV ONE (23:58)
== END 2025-04-14 04:03 ==
LOC: DL.ED 21:02
DX: K81.9 Cholecystitis, unspecified (principal); F10.129 Alcohol abuse with intoxication, unspecified; R74.01 Elevation of levels of liver transaminase levels; E11.9 Type 2 diabetes mellitus without complications; Y90.8 Blood alcohol level of 240 mg/100 ml or more
CPT/HCPCS: 36415; 74177; 80053; 80305; 80307; 81003; 82140; 83605; 83690; 83735; 85025; 85610; 96365; 96366; 96372; 96375; 99285; 99291; A9270; J0696; J2270; J2405; J3475; J7030; Q9967